=== PATIENT | female | born 1950 | race Caucasian/White ===

== ENCOUNTER → 2018-02-23 | Outpatient (CLI) | payer OTHER | LOC: M.NUC 07:18 | DX: K31.84 Gastroparesis (principal); R11.0 Nausea ==

== ENCOUNTER → 2018-02-25 | Outpatient (CLI) | payer OTHER | LOC: M.RAD 08:53 | DX: J98.4 Other disorders of lung (principal); R13.10 Dysphagia, unspecified; R11.10 Vomiting, unspecified; R05 Cough ==

== ENCOUNTER → 2018-03-09 | Outpatient (CLI) | payer OTHER | LOC: M.RAD 10:43 | DX: R13.12 Dysphagia, oropharyngeal phase (principal); R05 Cough; R11.10 Vomiting, unspecified ==